=== PATIENT | female | born 2000 | race Caucasian/White ===

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

== ENCOUNTER 2018-03-31 10:30 | Emergency (ER) | payer OTHER ==
[2018-03-31 11:48] VITALS: BP 123/84
--- NOTE | 2018-03-31 12:02 | UC ---
UC General HPI - HPI Summary HPI Summary: UTI, 1 day of urinary frequency, urgency and burning. hx same. no concern for std and no vaginal d/c. - History of Current Complaint Chief Complaint: UCGU Stated Complaint: URINARY COMPLAINT Time Seen by Provider: 03/31/18 11:57 Hx Obtained From: Patient Hx Last Menstrual Period: 03/17/18 Onset/Duration: Gradual Onset Timing: Constant Pain Intensity: 5 Aggravating: nothing Alleviating: nothing Associated Signs & Symptoms: Positive: Dysuria. Negative: Abdominal Pain, Fever - Allergy/Home Medications Allergies/Adverse Reactions: Allergies Allergy/AdvReac Type Severity Reaction Status Date / Time No Known Allergies Allergy Verified 03/31/18 11:42 PMH/Surg Hx/FS Hx/Imm Hx - Additional Past Medical History Additional PMH: UTI - Surgical History Surgical History: None - Family History Known Family History: Positive: None, Diabetes - Social History Alcohol Use: None Substance Use Type: None Smoking Status (MU): Never Smoked Tobacco - Immunization History Vaccination Up to Date: Yes Review of Systems Constitutional: Negative Skin: Negative Eyes: Negative ENT: Negative Respiratory: Negative Cardiovascular: Negative Gastrointestinal: Negative Genitourinary: Dysuria, Frequency, Urgency Motor: Negative Neurovascular: Negative Musculoskeletal: Negative Neurological: Negative Psychological: Negative Is Patient Immunocompromised?: No All Other Systems Reviewed And Are Negative: Yes Physical Exam Triage Information Reviewed: Yes Appearance: Well-Appearing Vital Signs: Initial Vital Signs Temp 98.5 F 03/31/18 11:43 Pulse 77 03/31/18 11:43 Resp 13 03/31/18 11:43 BP 123/84 03/31/18 11:43 Pulse Ox 100 03/31/18 11:43 Vital Signs Reviewed: Yes Eyes: Positive: Conjunctiva Clear ENT: Positive: Normal ENT inspection Neck: Positive: Supple, Nontender, No Lymphadenopathy Respiratory: Positive: Lungs clear, Normal breath sounds Cardiovascular: Positive: RRR, No Murmur Abdomen Description: Positive: Nontender, No Organomegaly, Soft. Negative: CVA Tenderness (R), CVA Tenderness (L), Distended, Guarding Bowel Sounds: Positive: Present Musculoskeletal: Positive: ROM Intact Neurological: Positive: Alert Psychological: Positive: Age Appropriate Behavior Skin Exam: Normal Diagnostics - Laboratory Diagnostic Studies Completed/Ordered: U/a= no blood, leukocytes, nitrites. culture pending. Course/Dx - Course Course Of Treatment: non toxic, no concern or s/s's STD. Hx uti's and this is the same. pt hydrating lots. u/a unremarkable which may be from hydrating thus will tx presumptively for uti and send culture. - Differential Dx - Multi-Symptom Provider Diagnoses: Dysuria Discharge - Sign-Out/Discharge Documenting (check all that apply): Patient Departure All imaging exams completed and their final reports reviewed: No Studies - Discharge Plan Condition: Stable Disposition: HOME Prescriptions: Nitrofurantoin Monohyd/M-Cryst [Macrobid 100 mg Capsule] 100 mg PO BID 5 Days # 10 cap Patient Education Materials: Dysuria (ED) Referrals: [facility] [Outside] - 5 Days - Billing Disposition and Condition Condition: STABLE Disposition: Home
== END 2018-03-31 12:12 | disposition home or self-care (01) ==
LOC: UCCORT 10:30
DX: R30.0 Dysuria (principal); Z87.440 Personal history of urinary (tract) infections
CPT/HCPCS: 81003; 87086; 99212; G0463

== ENCOUNTER 2019-04-27 18:55 | Emergency (ER) | payer OTHER ==
[2019-04-27 19:25] VITALS: BP 136/81
--- NOTE | 2019-04-27 20:21 | UC ---
Abdominal Pain Female HPI - HPI Summary HPI Summary: Pt presents with nausea and diarrhea for several days. Pt denies fever, chills mild cramping, improves with BM. no blood, black, mucous. nno fever, hcills,, trauma No rectal pain, dysuria. no sick contact no new meds, otc meds not meds reviewed - History of Current Complaint Chief Complaint: UCAbdominalPain Stated Complaint: ABD.PAIN Time Seen by Provider: 04/27/19 20:00 Hx Obtained From: Patient Hx Last Menstrual Period: 04/17/19 Onset/Duration: Gradual Onset Pain Intensity: 6 Allergies/Adverse Reactions: Allergies Allergy/AdvReac Type Severity Reaction Status Date / Time No Known Allergies Allergy Verified 03/31/18 11:42 PMH/Surg Hx/FS Hx/Imm Hx Previously Healthy: Yes - Surgical History Surgical History: None - Family History Known Family History: Positive: Diabetes, Other - mom with rectal CA - Social History Alcohol Use: Occasionally Substance Use Type: None Smoking Status (MU): Current Some Day Smoker Type: eCigarettes - Immunization History Vaccination Up to Date: Yes Review of Systems All Other Systems Reviewed And Are Negative: Yes Constitutional: Positive: Negative Skin: Positive: Negative Gastrointestinal: Positive: Abdominal Pain, Diarrhea, Nausea Genitourinary: Positive: Negative Physical Exam - Summary Physical Exam Summary: Vital Signs Reviewed: Yes A+Ox3, no distress Eyes: Conjunctiva Clear, LEELEE. EOM intact and full ENT: Hearing grossly normal TM x 2 clear, mmoist, uvula midline, no exudate, no erythema Neck: Positive: Supple Respiratory: Positive: No respiratory distress, No accessory muscle use + CTA throughout no w/r Cardiovascular: RRR nl s1, s2 no m/r CBT <2 sec abd soft + BS nt/nd no guarding, no distension, no cva, soft Musculoskeletal Exam: WALTER x 4 without difficulty Strength Intact, ROM Intact Neurological: Positive: Alert, + sensation throughout Psychological: Positive: Normal Response To property clerk Skin: Positive: no rash, no ecchymosis Triage Information Reviewed: Yes Vital Signs: Initial Vital Signs Temp 98.4 F 04/27/19 19:20 Pulse 103 04/27/19 19:20 Resp 16 04/27/19 19:20 BP 136/81 04/27/19 19:20 Pulse Ox 98 04/27/19 19:20 Abd Pain Female Course/Dx - Course Course Of Treatment: Pt with intermittent nausea, abd cramping and diarrhea x 10 days. no fever, chills mild cramping, relieved by BM. VSS, exam non concerning. Pt moom with h. /o rectal CA - will check labs here, urine reviewed - culture ordered, class note, hydrate and strict return precuations pt comfortable and in agreeement. pt is not toxic appearing and non concerning exam - if sx change - recommend go to ED - pt in agreement - Differential Dx/Diagnosis Provider Diagnosis: Diarrhea Discharge ED - Sign-Out/Discharge Documenting (check all that apply): Patient Departure All imaging exams completed and their final reports reviewed: No Studies - Discharge Plan Condition: Stable Disposition: HOME Patient Education Materials: Acute Diarrhea (ED) Forms: *Gen. Provider Communication, *School Release Referrals: Darin Wilcox DO [Doctor of Osteopathy] - No Primary Care Phys,NOPCP [Primary Care Provider] - Dago Nails MD [Medical Doctor] - Additional Instructions: - STay well hydrated - drink frequent sips of non-alcoholic, non-caffinated beverages - Okay to take Tylenol every 6-8 hours for cramping pain - As discussed - you had bloodwork drawn today - this will be reviewed tomorrow - if there are any concerning results, you will receive a call from a care human resources team member - You have been given a collection kit and order for stool cultures - return a sample as instructed - Contact either of the GI doctors provided to schedule a follow-up appointment If you develop uncontrolled pain, fever, vomiting, blood stools, or other concerns it is recommended you go directly to the emergency department for further evaluation and treatment - Billing Disposition and Condition Condition: STABLE Disposition: Home
[2019-04-28 11:07] LABS: ABS Basophils 0.1 10^3/ul (0-0.2); ABS Eosinophils 0.1 10^3/ul (0-0.6); ABS Neutrophils 5.6 10^3/ul (1.5-7.7); Eosinophil % 0.8 %; Hematocrit 45 % (35-47); Hemoglobin 15.4 g/dL (12.0-16.0); Lymphocyte % 22.5 %; Mean Corpuscular HGB Conc 34 g/dL (31-36); Mean Corpuscular Hemoglobin 30 pg (27-31); Mean Corpuscular Volume 89 fL (80-97); Mean Platelet Volume 9.7 fL (7.4-10.4); Nucleated Red Blood Cells % 0.1; Platelet Count 393 10^3/uL (150-450); Red Cell Distribution Width 13 % (10-15); White Blood Count 8.7 10^3/uL (3.5-10.8)
[2019-04-28 11:09] LABS: Albumin 4.9 g/dL (3.2-5.2); Calcium 10.2 mg/dL (8.6-10.3); Magnesium 2.4 mg/dL (1.9-2.7); Potassium 4.2 mmol/L (3.5-5.0); Total Bilirubin 0.6 mg/dL (0.2-1.0)
[2019-04-28 11:15] LABS: Albumin/Globulin Ratio 1.9 (1-3); BUN/Creatinine Ratio 16.7 (8-20); EGFR African American 112.8 (>60); EGFR Non-African American 93.2 (>60); Globulin 2.6 g/dL (2-4); Total Protein 7.5 g/dL (6.4-8.9)
== END 2019-04-27 20:53 | disposition home or self-care (01) ==
LOC: UCCORT 18:55
DX: R19.7 Diarrhea, unspecified (principal); R10.9 Unspecified abdominal pain; F17.290 Nicotine dependence, other tobacco product, uncomplicated; R11.0 Nausea
CPT/HCPCS: 36415; 80053; 81003; 83735; 84702; 85025; 99211; G0463

== ENCOUNTER 2019-09-20 13:13 | Emergency (ER) | payer OTHER ==
[2019-09-20 14:04] VITALS: BP 123/83
--- NOTE | 2019-09-20 14:55 | UC ---
Head Injury HPI - HPI Summary HPI Summary: 19-year-old female presents with right maxillary pain, swelling, and bruising. Patient states that on 09/17/2019 she tripped and fell in her dorm room and struck the right side of her face on a metal armrest of a chair. States she had immediate bruising and swelling over the right maxilla. No loss of consciousness. States the swelling has decreased over the past 2 days however the bruising has worsened. Mild headache. She also reports a small area of tenderness and swelling to the left mandible that she noticed approximately one week ago. Denies fever, chills, epistaxis, ear drainage, visual disturbances, photophobia, slurred or difficulty speaking, dizziness, trismus, dental pain, malocclusion, neck pain, or other injury. - History Of Current Complaint Chief Complaint: UCGeneralIllness Stated Complaint: SP FALL-FACIAL INJURY Time Seen by Provider: 09/20/19 14:09 Hx Obtained From: Patient Hx Last Menstrual Period: 09/07/19 Pain Intensity: 7 - Allergies/Home Medications Allergies/Adverse Reactions: Allergies Allergy/AdvReac Type Severity Reaction Status Date / Time No Known Allergies Allergy Verified 09/20/19 14:04 Home Medications: Home Medications Norethindrone-E.estradiol-Iron [Junel Fe 1 mg-20 Mcg Tablet] 1 tab PO BEDTIME [History Confirmed 09/20/19] PMH/Surg Hx/FS Hx/Imm Hx Previously Healthy: Yes - Denies significant PMH - Surgical History Surgical History: None - Family History Known Family History: Positive: Diabetes, Other - mom with rectal CA - Social History Occupation: Student Lives: Dormitory/Roommates Alcohol Use: Occasionally Substance Use Type: None Smoking Status (MU): Never Smoked Tobacco Type: eCigarettes - Immunization History Vaccination Up to Date: Yes Review of Systems All Other Systems Reviewed And Are Negative: Yes Constitutional: Positive: Negative Skin: Positive: Bruising Eyes: Negative: Blurred Vision, Diplopia, Photophobia ENT: Negative: Epistaxis, Dental Pain, Sore Throat, Ear Ache, Nasal Discharge, Sinus Congestion, Sinus Pain/Tenderness Respiratory: Positive: Negative Cardiovascular: Positive: Negative Gastrointestinal: Positive: Negative Genitourinary: Positive: Negative Musculoskeletal: Positive: Negative Neurological/Mental Status: Positive: Headache. Negative: Weakness, Paresthesia , Numbness Is Patient Immunocompromised?: No Physical Exam - Summary Physical Exam Summary: GENERAL APPEARANCE: Well developed, well nourished, alert and cooperative, and appears to be in no acute distress. HEAD: Normocephalic. Right suborbital and maxillary tenderness with ecchymosis. No gross deformity or crepitus. EYES: Conjunctiva clear. No drainage. PERRL, EOM intact. Vision is grossly intact. EARS: External auditory canals and tympanic membranes clear, hearing grossly intact. NOSE: No nasal discharge. THROAT: Pharynx normal. No tonsilar inflammation, swelling, exudate, or lesions. Uvula midline. Oral cavity normal. Teeth and gingiva in good general condition. Mild left TMJ tenderness with click. No trismus. NECK: Neck supple, non-tender. Full ROM. Single, smooth, mobile, nontender left submandibular lymph node. CARDIAC: Normal S1 and S2. No S3, S4 or murmurs. Rhythm is regular. There is no peripheral edema, cyanosis or pallor. Extremities are warm and well perfused. Capillary refill is less than 2 seconds. Peripheral pulses intact. LUNGS: Clear to auscultation without rales, rhonchi, wheezing or diminished breath sounds. ABDOMEN: Positive bowel sounds. Soft, nondistended, nontender. No guarding or rebound. No masses or hepatosplenomegally. MUSKULOSKELETAL: ROM intact to all extremities. No joint erythema or tenderness. Normal muscular development. Normal gait. NEUROLOGICAL: CN II-XII intact. Strength and sensation symmetric and intact throughout. Cerebellar testing normal. SKIN: Skin normal color, texture and turgor. Triage Information Reviewed: Yes Vital Signs: Initial Vital Signs Temp 99.7 F 09/20/19 13:59 Pulse 85 09/20/19 13:59 Resp 14 09/20/19 13:59 BP 123/83 09/20/19 13:59 Pulse Ox 97 09/20/19 13:59 Vital Signs Reviewed: Yes Diagnostics - Radiology No standard instances Radiology Interpretation Completed By: Radiologist Summary of Radiographic Findings: Order Information: CT MAXILLOFACIAL W/O. INDICATION: Fall resulting in right maxillary pain/ecchymosis. COMPARISON: There are no relevant prior studies available for comparison. TECHNIQUE: Contiguous axial sections of the axial images of the facial bones were obtained and reconstructed in the coronal and sagittal planes. FINDINGS: There is some motion degradation. There is soft tissue swelling over the right malar eminence. The globes are symmetric. The lenses are anatomically aligned. There is no retrobulbar hematoma. No maxillofacial fracture is identified. The TMJs are anatomically aligned. All third molars have been extracted. No untreated dental or periodontal disease is identified. The partially imaged intracranial and intraorbital contents are unremarkable. The paranasal sinuses and mastoid air cells are predominantly well aerated. IMPRESSION: 1. Soft tissue swelling over the right malar eminence. No maxillofacial fracture. Head Injury Course/Dx - Course Course Of Treatment: 19-year-old female presents with right maxillary pain, swelling, and bruising. Patient states that on 09/17/2019 she tripped and fell in her dorm room and struck the right side of her face on a metal armrest of a chair. States she had immediate bruising and swelling over the right maxilla. No loss of consciousness. States the swelling has decreased over the past 2 days however the bruising has worsened. Mild headache. She also reports a small area of tenderness and swelling to the left mandible that she noticed approximately one week ago. Denies fever, chills, epistaxis, ear drainage, visual disturbances, photophobia, slurred or difficulty speaking, dizziness, trismus, dental pain, malocclusion, neck pain, or other injury. Afebrile. Vital signs stable. Patient is neurologically intact. She had right suborbital and maxillary tenderness with ecchymosis. No gross deformity or crepitus. Mild left TMJ tenderness with click. No trismus. A single, smooth, mobile, nontender left submandibular lymph node. Remainder of exam was unremarkable. Maxillofacial CT was obtained which showed no acute fracture. Reviewed results with the patient. Recommending conservative treatment for a facial contusion. She is to return here or follow up with the [facility] in 7 days if symptoms do not improve. Anticipatory guidance and warning symptoms were reviewed with the patient. Verbalizes understanding and agrees with POC. - Differential Dx/Diagnosis Differential Diagnosis/HQI/PQRI: Concussion Without LOC, Contusion, Hematoma, Mandible Fracture, Orbital Fracture, Zygomatic Fracture Provider Diagnosis: Facial contusion Discharge ED - Sign-Out/Discharge Documenting (check all that apply): Patient Departure All imaging exams completed and their final reports reviewed: No Studies - Discharge Plan Condition: Stable Disposition: HOME Patient Education Materials: Facial Contusion (ED) Forms: *School Release Referrals: No Primary Care Phys,NOPCP [Primary Care Provider] - Additional Instructions: The CT scan performed in the clinic today showed no evidence of any facial fracture or jaw injury. I suspect that she have a contusion (bruise) of the face. Apply ice to the affected area for 15-20 minutes 3-4 times a day to help reduce any pain and swelling. Take acetaminophen (Tylenol) or ibuprofen (Advil, Motrin) according to directions as needed for any pain. Return here or follow up with the [facility] in 7 days if symptoms are not improving. Seek immediate medical attention in the emergency room if you develop a fever greater than 100.5 F, have a severe headache, visual disturbances, dizziness, slurred or difficulty speaking, you are unable to open and close her mouth, have any weakness, numbness, tingling of the arms or legs, or any worsening of symptoms. - Billing Disposition and Condition Condition: STABLE Disposition: Home
== END 2019-09-20 15:27 | disposition home or self-care (01) ==
LOC: UCCORT 13:13
DX: S00.83XA Contusion of other part of head, initial encounter (principal); R51 Headache; W18.30XA Fall on same level, unspecified, initial encounter; W22.03XA Walked into furniture, initial encounter; Y92.9 Unspecified place or not applicable; M79.89 Other specified soft tissue disorders
CPT/HCPCS: 70486; 84702; 99211; G0463